=== PATIENT | male | born 1970 | race Caucasian/White ===

== ENCOUNTER 2021-08-31 18:14 | Outpatient (REF) | payer OTHER, SELFPAY ==
[2021-08-31 21:18] LABS: Anion Gap 12.8 mmol/L (3-11); BUN 20 mg/dL (7-18); CO2 24.2 mmol/L (21.0-32.0); CREATININE 0.8 mg/dL (0.70-1.30); Calcium 9.2 mg/dL (8.5-10.1); Calculated LDL 91 mg/dL (<100); Chloride 100 mmol/L (98-107); Cholesterol 186 mg/dL (<200); Glucose 217 mg/dL (74-106); HDL Cholesterol 56 mg/dL (40-60); Potassium 3.8 mmol/L (3.5-5.1); Sodium 137 mmol/L (136-145); Triglyceride 199 mg/dL (<150)
[2021-08-31 21:24] LABS: Hemoglobin A1C 10.6 % (<5.7)
== END 2021-08-31 18:15 | disposition home or self-care (01) ==
LOC: NCHCN 18:14
PROVIDERS: Visit Provider Registered Nurse
DX: Z00.00 Encounter for general adult medical examination without abnormal findings (principal); I10 Essential (primary) hypertension; R73.9 Hyperglycemia, unspecified
CPT/HCPCS: 80048; 80061; 83036

== ENCOUNTER 2021-11-17 16:13 | Outpatient (REF) | payer OTHER, SELFPAY ==
[2021-11-17 22:43] LABS: COMMENT (LAB VIEW ONLY) 65.97 mg/dL
[2021-11-17 22:54] LABS: Microalb ug/mg Crea 142.3 ug/mg Cr
== END 2021-11-17 16:14 | disposition home or self-care (01) ==
LOC: NCHCN 16:13
PROVIDERS: Visit Provider Registered Nurse
DX: E11.9 Type 2 diabetes mellitus without complications (principal)
CPT/HCPCS: 82043; 82570

== ENCOUNTER 2024-01-22 16:38 | Outpatient (REF) | payer BC, SELFPAY ==
[2024-01-22 21:07] LABS: COMMENT (LAB VIEW ONLY) 50.97 mg/dL
[2024-01-22 21:08] LABS: Microalb ug/mg Crea 119.1 ug/mg Cr
== END 2024-01-22 16:39 | disposition home or self-care (01) ==
LOC: NCHCN 16:38
PROVIDERS: Visit Provider Family Medicine
DX: E11.9 Type 2 diabetes mellitus without complications (principal)
CPT/HCPCS: 82043; 82570

== ENCOUNTER 2024-09-04 17:11 | Outpatient (REF) | payer BC, SELFPAY ==
[2024-09-04 21:35] LABS: ALT 50 U/L (16-63); AST 28 U/L (15-37); Albumin 4.1 g/dL (3.4-5.0); Alkaline Phosphatase 105 U/L (46-116); Anion Gap 9.7 mmol/L (3-11); BUN 18 mg/dL (7-18); Bilirubin, Total 0.4 mg/dL (0.2-1.0); CO2 27.3 mmol/L (21.0-32.0); Calcium 9.4 mg/dL (8.5-10.1); Chloride 99 mmol/L (98-107); Estimated GFR 109.50 (mL/min/1.73m2); Glucose 175 mg/dL (74-106); Potassium 4.4 mmol/L (3.5-5.1); Sodium 136 mmol/L (136-145); Total Protein 8.4 g/dL (6.4-8.2)
[2024-09-04 21:53] LABS: Calculated LDL 91 mg/dL (<100); Cholesterol 168 mg/dL (<200); HDL Cholesterol 67 mg/dL (>or=40); Triglyceride 51 mg/dL (<150)
== END 2024-09-04 17:12 | disposition home or self-care (01) ==
LOC: NCHCN 17:11
PROVIDERS: Visit Provider Family Medicine
DX: E78.5 Hyperlipidemia, unspecified (principal); I10 Essential (primary) hypertension
CPT/HCPCS: 80053; 80061